=== PATIENT | female | born 1950 | race Caucasian/White ===

== ENCOUNTER 2017-03-31 10:12 | Emergency (ER) | payer MEDICARE, BC ==
[2017-03-31] MEDS ORDERED: ACIPHEX20 MG PO (12:52)
[2017-03-31] MEDS ORDERED: VENTOLIN HFA18 GM INH (12:53)
[2017-03-31] MEDS ORDERED: FISH OIL1 GM PO (12:54)
== END 2017-03-31 13:45 | disposition short-term general hospital (02) ==
LOC: ER 10:12 → RT 10:13 → ER 10:13
DX: K86.89 Other specified diseases of pancreas (principal); R07.9 Chest pain, unspecified; K21.9 Gastro-esophageal reflux disease without esophagitis; J45.909 Unspecified asthma, uncomplicated; E78.00 Pure hypercholesterolemia, unspecified; Z88.2 Allergy status to sulfonamides; Z79.899 Other long term (current) drug therapy; Z90.710 Acquired absence of both cervix and uterus; Z87.891 Personal history of nicotine dependence
CPT/HCPCS: A9270; Q9967

== ENCOUNTER 2017-06-27 20:34 | Emergency (ER) | payer MEDICARE, BC ==
[~2017-06-27] VITALS: Ht 167.6 cm; Wt 82.5 kg
[~2017-06-27 20:34] MED LIST: ACIPHEX20 MG PO; FISH OIL1 GM PO; VENTOLIN HFA18 GM INH
[2017-06-27] MEDS ORDERED: ACETAMINOPHEN500 MG PO (22:52)
[2017-06-27] MEDS ORDERED: DECADRON4 MG PO (22:54)
[2017-06-28] MEDS ORDERED: XARELTO15 MG PO (02:11)
[2017-06-28] MEDS ORDERED: HYDROCODON-ACE1 EAC4 PO (02:13)
[2017-06-28] MEDS ORDERED: NORCO 5-325 TA1 EACH PO (02:13)
[2017-06-28] MEDS ORDERED: IMODIUM2 MG PO (02:16)
[2017-06-28] MEDS ORDERED: ONDANSETRON HCL8 MG PO (02:17)
[2017-06-28] MEDS ORDERED: ULTRAM50 MG PO (02:18)
[2017-06-28] MEDS ORDERED: COMPAZINE10 MG PO (02:18)
[2017-06-28] MEDS ORDERED: ACIPHEX20 MG PO (02:20)
== END 2017-06-28 | disposition short-term general hospital (02) ==
LOC: ER 20:34
DX: M62.81 Muscle weakness (generalized) (principal); R42 Dizziness and giddiness; R19.7 Diarrhea, unspecified; R32 Unspecified urinary incontinence; E87.6 Hypokalemia; C25.9 Malignant neoplasm of pancreas, unspecified